=== PATIENT | female | born 1980 | race Caucasian/White ===

== ENCOUNTER 2024-01-30 09:20 | Emergency (ER) | payer OTHER ==
[2024-01-30] MEDS ORDERED: fentaNYL 50 mcg/mL 1 mL Vial ONE (09:54)
[2024-01-30] MEDS ORDERED: Ketorolac Tromethamine 30 MG (1 mL) VIAL ONE (09:55)
[2024-01-30] MEDS ORDERED: Ondansetron PF 4 MG/2 ML Vial ONE (09:55)
[2024-01-30] MEDS ORDERED: Iopamidol 300 61% 100 ML VIAL FS ONE (10:30)
[2024-01-30 10:35] LABS: #Basophils 0.06 10x3/uL (0.0-0.2); #Eosinphils 0.22 10x3/uL (0.0-0.5); #Monocytes 0.43 10x3/uL (0.0-1.1); #Neutrophils 5.36 10x3/uL (1.5-8.4); %Basophils 0.7 % (0.0-2.0); %Eosinophils 2.6 % (0.0-6.0); %Lymphocytes 28.2 % (18.0-47.0); %Monocytes 5.1 % (0.0-10.0); Hematocrit 39.3 % (34.9-44.5); Hemoglobin 12.8 g/dL (12.0-15.5); Mean Corpuscular HGB CONC 32.6 g/dL (32.0-36.0); Mean Corpuscular Hemoglobin 28.5 pg (27.0-33.0); Mean Corpuscular Volume 87.5 fL (81.6-98.3); Mean Platelet Volume 9.9 fL (7.4-10.4); Platelet Count 267 10x3/uL (150-450); RBC Distribution Width 15.6 % (11.5-14.5); Red Blood Cell (RBC) Count 4.49 10x6/uL (3.90-5.03); White Blood Cell (WBC) Count 8.5 10x3/uL (3.5-10.5)
[2024-01-30 10:46] LABS: ALT (SGPT) 17 U/L (8-55); AST (SGOT) 17 U/L (5-34); Albumin 3.6 g/dL (3.5-5.0); Alkaline Phosphatase 85 U/L (40-110); Anion Gap 14 mmol/L (10-20); BUN (Urea Nitrogen) 20 mg/dL (7.0-18.7); Bilirubin, Total Less than 0.2 mg/dL (0.2-1.2); Calc. Creatinine Clearance 0 mL/min (70-130); Calcium 9.6 mg/dL (7.8-10.44); Carbon Dioxide 26 mmol/L (22-29); Chloride 102 mmol/L (98-107); Estimated GFR 94; Globulin 3.5 g/dL (2.4-3.5); Glucose 114 mg/dL (70-105); Lipase 118 U/L (8-78); Potassium 4.9 mmol/L (3.5-5.1); Protein, Total 7.1 g/dL (6.0-8.3); Sodium 137 mmol/L (136-145)
[2024-01-30] MEDS ORDERED: Morphine 4 MG/ML VIAL ONE (11:31)
[2024-01-30 11:39] LABS: Bilirubin Neg (Negative); Blood, Urine Negative (Negative); Clarity Clear (Clear); Glucose, Urine (Dipstick) Normal (Negative); Ketone, Urine Negative (Negative); Leukocyte Negative (Negative); Nitrite Negative (Negative); Protein, Urine (Dipstick) 30 mg/dl (Neg-Trace); Specific Gravity, Urine 1.015 (1.005-1.030); Urobilinogen Normal mg/dL (Less than 2)
[2024-01-30 12:25] LABS: Bacteria/HPF 1+ HPF (None Seen); CAUTI Indications for Culture Pelvic or flank pain; RBC/HPF 0-3 HPF (0-3); WBC/HPF 0-3 HPF (0-3)
[2024-01-30 12:26] LABS: Urine Culture Reflex No No
== END 2024-01-30 12:29 | disposition home or self-care (01) ==
LOC: CSHERS 09:20
DX: K59.00 Constipation, unspecified (principal); C56.9 Malignant neoplasm of unspecified ovary; E11.9 Type 2 diabetes mellitus without complications; I10 Essential (primary) hypertension
CPT/HCPCS: 74177; 80053; 81001; 83690; 85025; 96374; 96375; J1885; J2270; J2405; J3010; Q9967

== ENCOUNTER 2024-02-12 14:29 | Emergency (ER) | payer OTHER ==
[2024-02-12] MEDS ORDERED: Ketorolac Tromethamine 30 MG (1 mL) VIAL ONE (15:13)
[2024-02-12] MEDS ORDERED: Morphine 4 MG/ML VIAL ONE ×3 (15:13→19:59)
[2024-02-12] MEDS ORDERED: Ondansetron PF 4 MG/2 ML Vial ONE (15:13)
[2024-02-12 15:34] LABS: #Basophils 0.06 10x3/uL (0.0-0.2); #Eosinphils 0.26 10x3/uL (0.0-0.5); #Monocytes 0.41 10x3/uL (0.0-1.1); %Basophils 0.7 % (0.0-2.0); %Eosinophils 3.2 % (0.0-6.0); %Lymphocytes 36.8 % (18.0-47.0); %Monocytes 5.1 % (0.0-10.0); %Neutrophils 53.5 % (40.0-75.0); Hematocrit 38.7 % (34.9-44.5); Hemoglobin 12.7 g/dL (12.0-15.5); Mean Corpuscular HGB CONC 32.8 g/dL (32.0-36.0); Mean Corpuscular Hemoglobin 28.4 pg (27.0-33.0); Mean Corpuscular Volume 86.6 fL (81.6-98.3); Mean Platelet Volume 9.3 fL (7.4-10.4); Platelet Count 275 10x3/uL (150-450); RBC Distribution Width 15.4 % (11.5-14.5); Red Blood Cell (RBC) Count 4.47 10x6/uL (3.90-5.03); White Blood Cell (WBC) Count 8.1 10x3/uL (3.5-10.5)
[2024-02-12 15:46] LABS: ALT (SGPT) 21 U/L (8-55); AST (SGOT) 16 U/L (5-34); Albumin 3.5 g/dL (3.5-5.0); Alkaline Phosphatase 75 U/L (40-110); Anion Gap 17 mmol/L (10-20); BUN (Urea Nitrogen) 22 mg/dL (7.0-18.7); Bilirubin, Total 0.2 mg/dL (0.2-1.2); Calc. Creatinine Clearance 0 mL/min (70-130); Calcium 9.4 mg/dL (7.8-10.44); Carbon Dioxide 22 mmol/L (22-29); Chloride 103 mmol/L (98-107); Estimated GFR 84; Globulin 3.7 g/dL (2.4-3.5); Glucose 154 mg/dL (70-105); Lipase 89 U/L (8-78); Potassium 4.4 mmol/L (3.5-5.1); Protein, Total 7.2 g/dL (6.0-8.3); Sodium 138 mmol/L (136-145)
[2024-02-12] MEDS ORDERED: Piperacillin/Tazobactam 4.5 GM VIAL ONE (16:07)
[2024-02-12 16:22] LABS: Troponin I Less than 0.010 ng/mL (< 0.028)
[2024-02-12 16:23] LABS: INR-International Normal Ratio 0.9; PTT 27.6 sec (22.0-33.0); Prothrombin Time 10.3 sec (9.5-12.1)
[2024-02-12] MEDS ORDERED: VANCOMYCIN IVPB SCH (16:30)
[2024-02-12 17:12] LABS: Bilirubin Neg (Negative); Blood, Urine Negative (Negative); Clarity Slightly Cloudy (Clear); Glucose, Urine (Dipstick) Normal (Negative); Ketone, Urine Negative (Negative); Leukocyte Negative (Negative); Nitrite Negative (Negative); Protein, Urine (Dipstick) 100 mg/dl (Neg-Trace); Urobilinogen Normal mg/dL (Less than 2)
[2024-02-12 18:12] LABS: Bacteria/HPF 1+ HPF (None Seen); CAUTI Indications for Culture Pelvic or flank pain; RBC/HPF 0-3 HPF (0-3); WBC/HPF 0-3 HPF (0-3)
[2024-02-12 18:14] LABS: Urine Culture Reflex No No
[2024-02-12 18:33] LABS: Lactic Acid 2.9 mmol/L (0.5-2.2)
== END 2024-02-12 20:46 | disposition home or self-care (01) ==
LOC: CSHERS 14:29
DX: M54.50 Low back pain, unspecified (principal); E86.0 Dehydration; E11.9 Type 2 diabetes mellitus without complications; I11.0 Hypertensive heart disease with heart failure; I50.9 Heart failure, unspecified
CPT/HCPCS: 36415; 71045; 74177; 80053; 81001; 83605; 83690; 84484; 85025; 85610; 85730; 87040; 96374; 96375; 96376; J1885; J2272; J2405; J2543; J3370